=== PATIENT | female | born 1970 | race Caucasian/White ===

== ENCOUNTER 2021-03-19 13:19 | Emergency (ER) | payer OTHER ==
[2021-03-19] MEDS ORDERED: Lidocaine 1% with EPINEPHrine 1:100,000 50 ML MDV INFILT ONE (14:15)
[2021-03-19] MEDS ORDERED: Bacitracin Oint 1 GM U/D Packet TOP ONE (14:15)
--- NOTE | 2021-03-19 14:48 | EDM.PDOC ---
ED HPI GENERAL MEDICAL PROBLEM - General Chief Complaint: Skin Complaint Stated Complaint: CYST BACK OF HEAD Time Seen by Provider: 03/19/21 13:39 Source of Information: Reports: Patient History Limitations: Reports: No Limitations - History of Present Illness INITIAL COMMENTS - FREE TEXT/NARRATIVE: 51 yo female presents to clinic with a epidermal cyst to the occipital area of her scalp. the cyst has been present for years. last month she had went on a carnival ride and the cyst became very inflamed swelled and became very painful. Since then it had decreased in size but remained mildly tender. This morning she noticed purulent discharge. generally healthy. from [place] vacationing in the area - Related Data Allergies Allergy/AdvReac Type Severity Reaction Status Date / Time No Known Allergies Allergy Verified 03/19/21 13:46 Home Meds: Home Meds NK [No Known Home Meds] 03/19/21 [History] Past Medical History Musculoskeletal History: Reports: Other (See Below) Other Musculoskeletal History: ankylosing spondylitis - Infectious Disease History Infectious Disease History: Reports: Chicken Pox, Measles, Mumps - Past Surgical History HEENT Surgical History: Reports: Tonsillectomy GI Surgical History: Reports: Cholecystectomy Female Surgical History: Reports: Breast Reduction, Hysterectomy Musculoskeletal Surgical History: Reports: None Social & Family History - Tobacco Use Tobacco Use Status *Q: Never Tobacco User - Recreational Drug Use Recreational Drug Type: Reports: Marijuana/Hashish Other Recreational Drug Type: medical ED ROS GENERAL - Review of Systems Review Of Systems: See Below Constitutional: Denies: Fever, Chills Respiratory: Denies: Shortness of Breath, Wheezing Cardiovascular: Denies: Chest Pain ED EXAM, SKIN/RASH Exam: See Below Exam Limited By: No Limitations General Appearance: Alert, WD/WN, No Apparent Distress Head: Normocephalic, Other (1 cm in diameter purulent drainage, mildly tender cyst to occipital of scalp) ED SKIN PROCEDURES - I&D Site: posterior scalp Skin Prep: Isopropyl Alcohol (Alcohol), Saline Local Anesthesia: Lidocaine: 1% with EPI Local Anesthetic Volume: 5cc Area Incised With: 11 Blade Drainage: Purulent, Bloody, Small Amount, Other (cyst capsule) Probed to Break Up Loculations: Yes Packed With: None Complications: No Course - Vital Signs Last Recorded V/S: Last Vital Signs Temp 36.5 C 03/19/21 13:46 Pulse 73 03/19/21 13:46 Resp 15 03/19/21 13:46 BP 142/85 H 03/19/21 13:46 Pulse Ox 96 03/19/21 13:46 - Orders/Labs/Meds Meds: Medications Discontinued Medications Generic Name Dose Route Start Last Admin Trade Name Shey PRN Reason Stop Dose Admin Bacitracin 1 dose 03/19/21 14:15 03/19/21 14:39 Bacitracin Oint 1 Gm U/D Packet TOP 03/19/21 14:16 1 dose ONETIME ONE Administration Lidocaine/Epinephrine 5 ml 03/19/21 14:15 03/19/21 14:38 Lidocaine 1% With Epinephrine 1:100,000 50 Ml Mdv INFILT 03/19/21 14:16 5 ml ONETIME ONE Administration Departure - Departure Time of Disposition: 14:45 Disposition: Home, Self-Care 01 Condition: Good Clinical Impression: Epidermal cyst - Discharge Information *PRESCRIPTION DRUG MONITORING PROGRAM REVIEWED*: Not Applicable *COPY OF PRESCRIPTION DRUG MONITORING REPORT IN PATIENT ANTONIO: Not Applicable Instructions: Epidermal Cyst Referrals: PCP,None [Primary Care Provider] - Forms: ED Department Discharge Additional Instructions: topical antibiotic to head as needed ice to area for pain wash with warm soapy water observe fro signs of infection - increase in pain, purulent drainage Sepsis Event Note (ED) - Evaluation Sepsis Screening Result: No Definite Risk - Focused Exam Vital Signs: Vital Signs Temp Pulse Resp BP Pulse Ox 03/19/21 13:46 36.5 C 73 15 142/85 H 96 03/19/21 13:39 36.5 C 73 15 142/85 H 96
== END 2021-03-19 15:09 | disposition home or self-care (01) ==
LOC: JP.ED 13:19
DX: L72.0 Epidermal cyst (principal); L02.811 Cutaneous abscess of head [any part, except face]
CPT/HCPCS: 10060; 99282-25